=== PATIENT | female | born 1955 | race Caucasian/White ===

== ENCOUNTER 2025-05-23 06:57 | Emergency (ER) | payer MEDICARE, SELFPAY ==
[2025-05-23 06:58] VITALS: BP 142/97
[2025-05-23 08:06] VITALS: BP 132/95
[2025-05-23 08:29] LABS: Hematocrit 43.6 % (37.0-47.0); Hemoglobin 14.3 g/dL (12.0-16.0); Mean Corp Hgb Conc. 32.8 g/dL (33.0-37.0); Mean Corpuscular Volume 96.0 fL (81.0-99.0); Nucleated Red Blood Cells % 0 %; Platelet Count 194 10^3/uL (130-400); Red Cell Dist. Width 13.1 % (11.5-14.5)
[2025-05-23 08:33] VITALS: BMI 27.4
--- NOTE | 2025-05-23 08:43 | ED.GENMED ---
History of Present Illness
General
Chief Complaint: Chest Pain
Source: patient
Exam Limitations: none
Time Seen by Provider: 05/23/25 07:28
History of Present Illness
History of Present Illness:
69-year-old female with history of breast cancer status post bilateral mastectomy on no medications currently presents complaining of chest discomfort upon awakening today. This was around [id number]. Was a pressure in the center of her chest that
radiated slightly to the sides. She also noted excess salivation at time but was not nauseous or diaphoretic. There is no shortness of breath. Endorses she flew to [place] and back last week. She denies leg swelling or calf pain. The pain is
currently resolved. She does follow with a [facility] hand/personal security specialist in [facility]. She has had cardiac calcium scores which have been negative however she does note that her brother recently had significant cardiac bypass surgery.
Phy Exam
Physical Exam
Physical Exam:
General: Well-appearing female no acute respiratory distress
HEENT normal cephalic atraumatic
Heart: Regular rate and rhythm
Lungs: Clear no wheeze
Skin warm no rash
Scores
Heart Score for Chest Pain Patients
STEMI patient?: No
History: Slightly or Non-Suspicious
ECG: Normal
Age: >/= 65 years
Risk Factors: 1 or 2 Risk Factors
Troponin: </= Normal Limit
Heart Score for Chest Pain Patients: 3
Heart Score Risk: 2.5% MACE over next 6 weeks
Course
Orders/Labs/Results
Orders:
Orders
05/23/25 07:01
ECG [Electrocardiogram (*1)] Urgent
Reason for Study: Chest Pain
05/23/25 07:02
EKG- Treatment ONCE
05/23/25 08:13
Complete Blood Count/With Diff Urgent
Comprehensive Metabolic Panel Urgent
D-Dimer Urgent
Lipase Urgent
Troponin I Urgent
05/23/25 10:05
Troponin I Urgent
Abnormal Lab Results
05/23/25
08:13
WBC 4.3 L 10^3/uL
(4.8-10.8)
MCH 31.5 H pg
(27.0-31.0)
MCHC 32.8 L g/dL
(33.0-37.0)
D-Dimer 0.66 H ug/mlFEU
(0.00-0.50)
Carbon Dioxide 31 H mmol/L
(22-30)
AST 40 H U/L
(14-36)
ALT 42 H U/L
(0-35)
05/23/25 08:13
05/23/25 08:13
Vital Signs
Initial and Last Documented VS:
Initial Vital Signs
Temp Pulse Resp BP Pulse Ox
97.7 F 74 18 142/97 97
05/23/25 06:58 05/23/25 06:58 05/23/25 06:58 05/23/25 06:58 05/23/25 06:58
Last Documented Vital Signs
Temp Pulse Resp BP Pulse Ox
97.7 F 65 15 145/93 98
05/23/25 06:58 05/23/25 10:00 05/23/25 10:00 05/23/25 10:00 05/23/25 10:00
MDM/Problems Addressed
Differential Diagnosis Includes:
Patient with chest discomfort upon awakening this morning now resolved. EKG shows sinus rhythm without ischemic changes. She does have a recent flight. Consider potential for PE. Vital signs are stable but given the flight and her age D-dimer
was ordered. Troponin pending.
*Pulse Oximetry
SaO2: 100
Oxygen Mode of Delivery: Room air
Patient hypoxic: no
*Critical Care Note
Total Time (30-74mins, 75-104mins- exclusive of procedures): Not Applicable
Update Note
Update Note:
Initial and repeat troponins both undetectable. Patient still pain-free nontoxic in appearance D-dimer age-appropriate and normal. Do not suspect ACS PE or dissection given resolution of symptoms. She has a personal security specialist he can follow-up with [place]
[facility] advise she do so. No indication for admission.
ED Attending Note
-
Portions of this chart may have been created with voice recognition software.� Occasional wrong word or��sound alike� substitutions may have occurred due to the inherent limitations of voice recognition software.
Discharge Plan
Departure
Patient Disposition: Home (Routine Discharge)
Date of Disposition: 05/23/25
Time of Disposition: 10:43
Patient with high blood pressure during this ER visit?: No
Discharge Problem:
Chest pain
Instructions: Chest Pain NON-[facility] Theater Projectionist Follow Up
Referrals:
UNKNOWN - PT DOES,NOT KNOW [Family Provider]
Activity Restrictions/Additional Instructions:
Please return here for worsening symptoms otherwise follow-up with your personal security specialist as planned
Interventions
Interventions:
*Risk Screen - Suicide Last Done: 05/23/25 08:15
*General Assessment Last Done: 05/23/25 08:15
*Neglect/Abuse Screening Last Done: 05/23/25 08:15
*ED- Fall Risk Assessment Last Done: 05/23/25 08:15
*ED COVID-19 Vaccine History Last Done: 05/23/25 08:15
*ED Influenza Vaccine History Last Done: 05/23/25 08:15
ED- Cardiac Assessment Last Done: 05/23/25 08:15
Discharge Date and Time
Print Language: GREENLANDIC
[2025-05-23 08:44] LABS: ALT (SGPT) 42 U/L (0-35); AST (SGOT) 40 U/L (14-36); Albumin 4.4 g/dl (3.5-5.0); Alkaline Phosphatase 73 U/L (38-126); Blood Urea Nitrogen 14 mg/dl (7-17); Calcium 9.7 mg/dl (8.4-10.2); Carbon Dioxide 31 mmol/L (22-30); Chloride 104 mmol/L (98-107); Estimated Creatinine Clearance 72 ml/min; Glucose 94 mg/dl (70-99); Lipase 161 U/L (23-300); Potassium 4.5 mmol/L (3.5-5.1); Sodium 140 mmol/L (135-145); Total Protein 7.0 g/dl (6.3-8.2); eGFR > 60.00
[2025-05-23 08:54] LABS: Troponin I < 0.012 ng/ml
[2025-05-23 08:55] LABS: D-Dimer 0.66 ug/mlFEU (0.00-0.50)
[2025-05-23 09:00] VITALS: BP 137/94
[2025-05-23 10:00] VITALS: BP 145/93
--- NOTE | 2025-05-23 10:07 | EDRN ---
Repeat troponin drawn and sent.
[2025-05-23 10:37] LABS: Troponin I < 0.012 ng/ml
== END 2025-05-23 10:53 | disposition home or self-care (01) ==
LOC: EMR 06:57
PROVIDERS: Physician Assistant; EMERGENCY PHYSICIAN Emergency Medicine
DX: R07.89 Other chest pain (principal); K11.7 Disturbances of salivary secretion; Z85.3 Personal history of malignant neoplasm of breast; Z90.13 Acquired absence of bilateral breasts and nipples
CPT/HCPCS: 99284; 80053; 83690; 84484; 85025; 85379; 93005